=== PATIENT | male | born 1990 | race African-American/Black ===

== ENCOUNTER 2024-05-22 04:03 | Emergency (ER) | payer SELFPAY ==
[2024-05-22 04:32] LABS: BASOPHILS ABSOLUTE AUTO 0.05 10^3/uL (0.00-0.50); BASOPHILS PERCENT AUTO 0.5 % (0-1); EOSINOPHILS ABSOLUTE AUTO 0.62 10^3/uL (0.00-1.50); EOSINOPHILS PERCENT AUTO 6.1 % (0-6); HEMATOCRIT 41.3 % (42.0-52.0); HEMOGLOBIN 13.5 g/dL (14.0-18.0); IMMATURE GRAN ABSOLUTE AUTO 0.02 10^3/uL (0.00-0.49); IMMATURE GRAN PERCENT AUTO 0.2 % (0.0-4.9); LYMPHOCYTES ABSOLUTE AUTO 2.77 10^3/uL (0.60-5.00); LYMPHOCYTES PERCENT AUTO 27.4 % (24-44); MEAN CORPUSCULAR HEMOGLOBIN 28.6 pg (27.0-32.0); MEAN CORPUSCULAR HGB CONC 32.7 g/dL (32.0-36.0); MEAN CORPUSCULAR VOLUME 87.5 fL (83.0-97.0); MONOCYTES PERCENT AUTO 5.9 % (0-10); NEUTROPHILS ABSOLUTE AUTO 6.05 x10^3/uL (1.80-8.00); NEUTROPHILS PERCENT AUTO 59.9 % (41-71); PLATELET COUNT,PLT 227 10^3/uL (150-400); RED BLOOD CELL COUNT 4.72 x10^6/uL (4.50-6.00); WHITE BLOOD CELL COUNT,WBC 10.1 10^3/uL (4.0-11.0)
[2024-05-22] MEDS: Ondansetron 4 MG/2 ML SDV IVPUSH STA (04:44)
[2024-05-22] MEDS: Sodium Chloride 0.9% 1,000 ML IV ONE (04:44)
[2024-05-22] MEDS: HYDROmorphone 1 MG/ML Syringe IVPUSH ONE ×2 (04:44→07:06)
[2024-05-22 04:45] LABS: ALANINE AMINOTRANSFERASE,ALT 28 U/L (12-78); ALBUMIN 4.1 g/dL (3.4-5.0); ALKALINE PHOSPHATASE 63 U/L (46-116); ASPARTATE AMNIOTRANSFERASE,AST 30 U/L (15-37); BILIRUBIN TOTAL 0.5 mg/dL (0.0-1.0); BLOOD UREA NITROGEN,BUN 15 mg/dL (7-18); CALCIUM 8.9 mg/dL (8.4-10.1); CARBON DIOXIDE,CO2 27 mmol/L (21-32); CHLORIDE,CL 101 mEq/L (98-106); CREATININE 1.3 mg/dL (0.7-1.3); GLUCOSE RANDOM 105 mg/dL (75-99); POTASSIUM,K 4.6 mEq/L (3.5-5.0); PROTEIN TOTAL,TP 7.9 g/dL (6.4-8.2); SODIUM,NA 136 mEq/L (136-145)
[2024-05-22 05:00] LABS: ESTIMATED GFR 75 mL/min (>=60)
[2024-05-22] MEDS: Iopamidol 755 Mg/ML 100 ML Bottle IVPUSH ONE (05:47)
[2024-05-22 06:29] LABS: APPEARANCE,URINE CLEAR (CLEAR); BILIRUBIN,URINE NEGATIVE (NEGATIVE); COLOR,URINE YELLOW (YELLOW); GLUCOSE,URINE NEGATIVE (NEGATIVE); KETONES,URINE NEGATIVE (NEGATIVE); LEUKOCYTE ESTERASE,URINE NEGATIVE (NEGATIVE); NITRITE,URINE NEGATIVE (NEGATIVE); OCCULT BLOOD,URINE NEGATIVE (NEGATIVE); PROTEIN,URINE NEGATIVE (NEGATIVE); UROBILINOGEN,URINE 0.2 EU/dL (0.2-1.0)
[2024-05-22] MEDS: Lactated Ringers 1,000 ML IV SCH (07:05)
== END 2024-05-22 07:50 | disposition critical access hospital (66) ==
LOC: CC.ED 04:03
DX: K56.609 Unspecified intestinal obstruction, unspecified as to partial versus complete obstruction (principal); K40.30 Unilateral inguinal hernia, with obstruction, without gangrene, not specified as recurrent; Z79.899 Other long term (current) drug therapy
CPT/HCPCS: 36415; 74177; 80053; 81003; 83605; 83735; 85025; 96361; 96374; 96375; 96376; 99284; 99285; J1170; J2405; J7030; J7120; Q9967